=== PATIENT | male | born 1965 | race Caucasian/White ===

== ENCOUNTER 2019-01-08 23:21 | Emergency (ER) | payer SELFPAY ==
[~2019-01-08] VITALS: Ht 167.6 cm; Wt 73.0 kg
[2019-01-09] MEDS ORDERED: ONDANSETRON HCL 4MG/2ML INJ IV ONE (00:15)
[2019-01-09 00:25] LABS: BASOPHILS % 1.2 % (0.0-2.0); EOSINOPHILS % 0.2 % (0.0-5.0); HEMATOCRIT. 44.8 % (42.0-52.0); HEMOGLOBIN. 15.1 g/dL (14.0-18.0); LYMPHOCYTES % 33.5 % (20.0-50.0); MEAN CORPUSCULAR HEMOGLOBIN 28.8 pg (28.0-32.0); MEAN CORPUSCULAR VOLUME 85.3 fL (80.0-94.0); MEAN PLATELET VOLUME 7.4 fl (7.4-10.4); MONOCYTES % 10.6 % (2.0-8.0); NEUTROPHILS % 54.5 % (40.0-76.0); PLATELET 254 x1000/uL (130-400); RED BLOOD CELL COUNT 5.26 mill/uL (4.7-6.1); RED CELL DISTRIBUTION WIDTH 13.7 % (11.6-14.6)
[2019-01-09 00:32] LABS: CHLORIDE 107 mEq/L (98-107)
[2019-01-09 00:36] LABS: ETHANOL BLOOD 230 mg/dL
[2019-01-09] MEDS ORDERED: CHLORDIAZEPOXIDE 25MG CAPSULE PO NR (01:45)
[2019-01-09] MEDS ORDERED: POTASSIUM CHLORIDE 20MEQ TABLET SR PO NR (01:45)
[2019-01-09 03:05] VITALS: BP 154/82
== END 2019-01-09 03:24 | disposition home or self-care (01) ==
LOC: ER 23:21
DX: F10.229 Alcohol dependence with intoxication, unspecified (principal); M25.561 Pain in right knee; R51 Headache; I10 Essential (primary) hypertension; Y90.7 Blood alcohol level of 200-239 mg/100 ml; Z91.14 Patient's other noncompliance with medication regimen; Z90.49 Acquired absence of other specified parts of digestive tract
CPT/HCPCS: 36415; 70450; 71045; 73560; 80053; 80320; 83880; 84484; 85025; 93005; 96374; 99284; J2405; Z7610; G0480